=== PATIENT | female | born 1990 | race Caucasian/White ===

== ENCOUNTER → 2018-08-29 | Outpatient (CLI) | payer BC ==
[~2018-08-29] MED LIST: AZIT250; CEFU500 PO; HYDACE5 PO; PROM25 PO; RXHYDACE PO; Verotin-Gr Cap1 EACH PO
[2018-08-29 13:03] LABS: Bilirubin, Urine Neg (Neg); Blood, Urine Neg (Neg); Glucose Qualitative, Urine Neg (Neg); Ketones, Urine Neg (Neg); Leukocyte Esterase, Urine Neg (Neg); Nitrite, Urine Neg (Neg); Protein, Urine Neg (Neg); Specific Gravity, Urine 1.005 (1.003-1.022); Urobilinogen, Urine NORM (Normal); pH, Urine 6.5 (5.0-8.0)
[2018-08-29 14:13] LABS: Appearance, Urine Clear (Clear); Color, Urine Yellow (P-Yellow)
== END | disposition home or self-care (01) ==
LOC: LAB 11:39 → LAB SHORT 11:39
PROVIDERS: Advanced Practice Midwife
DX: Z01.419 Encounter for gynecological examination (general) (routine) without abnormal findings (principal); R30.0 Dysuria
CPT/HCPCS: 81003; 87086; G0123

== ENCOUNTER → 2019-05-30 | Outpatient (CLI) | payer BC ==
[~2019-05-30] MED LIST changes: +Endometrin100 MG VG; +LEVSOD50; +PROG100 PO
== END | disposition home or self-care (01) ==
LOC: LAB SHORT 14:00 → LAB 14:00
DX: Z34.80 Encounter for supervision of other normal pregnancy, unspecified trimester (principal)
CPT/HCPCS: 87081; 87653

== ENCOUNTER 2019-06-28 05:28 | Inpatient (IN) | payer BC ==
[~2019-06-28] VITALS: Ht 165.1 cm; Wt 77.3 kg
[2019-06-28] MEDS ORDERED: Zantac150 MG PO (05:49)
--- NOTE | 2019-06-28 05:53 | NUR ---
LABS DRAWN OFF IV START PER PROTOCOL
[2019-06-28 05:56] LABS: BASOPHILS ABSOLUTE AUTO 0.03 K/mm3 (0.00-0.23); BASOPHILS PERCENT AUTO 0 % (0-2); EOSINOPHILS ABSOLUTE AUTO 0.09 K/mm3 (0.00-0.68); EOSINOPHILS PERCENT AUTO 1 % (0-6); Hematocrit 36.9 % (33.0-51.0); IMMATURE GRAN ABSOLUTE AUTO 0.03 K/mm3 (0.00-0.10); IMMATURE GRAN PERCENT AUTO 0 % (0-1); LYMPHOCYTES ABSOLUTE AUTO 1.97 K/mm3 (0.84-5.20); LYMPHOCYTES PERCENT AUTO 26 % (21-46); MONOCYTES ABSOLUTE AUTO 0.63 K/mm3 (0.16-1.47); MONOCYTES PERCENT AUTO 8 % (4-13); Mean Corpuscular HGB 28.2 pg (26.0-34.0); Mean Corpuscular HGB Conc 32.5 g/dL (31.5-36.5); Mean Corpuscular Volume 87 fL (80-100); Mean Platelet Volume 9.5 fL (9.1-12.4); NEUTROPHILS ABSOLUTE AUTO 4.94 K/mm3 (1.96-9.15); NEUTROPHILS PERCENT AUTO 64 % (41-73); Platelet Count 271 K/mm3 (150-400); RDW Coefficient Variation 12.4 % (11.7-14.2); RDW Standard Deviation 39.3 fL (35.1-46.3); Red Blood Cell Count 4.26 M/mm3 (3.80-5.20); White Blood Cell Count 7.69 K/mm3 (4.00-11.30)
[2019-06-29 08:31] LABS: Hematocrit 28.8 % (33.0-51.0); Hemoglobin 9.2 g/dL (11.5-16.0); Mean Corpuscular HGB 28.7 pg (26.0-34.0); Mean Corpuscular HGB Conc 31.9 g/dL (31.5-36.5); Mean Corpuscular Volume 90 fL (80-100); Mean Platelet Volume 9.6 fL (9.1-12.4); Platelet Count 210 K/mm3 (150-400); RDW Coefficient Variation 12.4 % (11.7-14.2); RDW Standard Deviation 40.7 fL (35.1-46.3); Red Blood Cell Count 3.21 M/mm3 (3.80-5.20); White Blood Cell Count 11.87 K/mm3 (4.00-11.30)
[2019-06-29] MEDS ORDERED: IBUP800 PO (09:57)
[2019-06-29] MEDS ORDERED: ACET500 PO (09:57)
--- NOTE | 2019-06-29 10:03 | NUR ---
CONSULT. SHE IS EXPERIENCED WITH BF TWINS, HAS SOME QUESTIONS ABOUT FEEDINGS THIS WEEK WITH A SINGLE BABY. BABY ASLEEP IN DADS ARMS, FED AN HOUR AGO FOR 20 MINUTES. INSTRUCT IN CHANGES TO EXPECT DURING THE FIRST WEEK WITH BABY AND WITH FEEDINGS AND REFERRED TO BF BROCHURE AND BF BOOKLET FOR PHOTOS AND INFORMATION. MOM STATES SHE EASILY SELF EBM FOR BABY NOW. BOTH PARENTS LOVING WITH BABY. QUESTIONS ANSWERED.
== END 2019-06-29 18:45 | disposition home or self-care (01) | DRG 807 ==
LOC: BC 05:28
PROVIDERS: ADMIT Obstetrics & Gynecology
PROC: 10E0XZZ Delivery of Products of Conception, External Approach (ICD-10-PCS; principal; 2019-06-28)
PROC: 0KQM0ZZ Repair Perineum Muscle, Open Approach (ICD-10-PCS; 2019-06-28)
PROC: 10907ZC Drainage of Amniotic Fluid, Therapeutic from Products of Conception, Via Natural or Artificial Opening (ICD-10-PCS; 2019-06-28)
PROC: 3E033VJ Introduction of Other Hormone into Peripheral Vein, Percutaneous Approach (ICD-10-PCS; 2019-06-28)
DX: O48.0 Post-term pregnancy (principal); Z37.0 Single live birth; O34.211 Maternal care for low transverse scar from previous cesarean delivery; O70.1 Second degree perineal laceration during delivery; Z3A.40 40 weeks gestation of pregnancy; O77.0 Labor and delivery complicated by meconium in amniotic fluid; Z87.891 Personal history of nicotine dependence; Z88.1 Allergy status to other antibiotic agents; Z88.0 Allergy status to penicillin
CPT/HCPCS: 36415; 51702; 85025; 85027; 86850; 86900; 86901; A9270; J1885; J2001; J2405; J2590; J3010; J7120

== ENCOUNTER 2024-08-18 08:39 | Emergency (ER) | payer OTHER ==
[~2024-08-18] VITALS: Ht 165.1 cm; Wt 56.7 kg
[~2024-08-18 08:39] MED LIST changes: +ACET500 PO; +IBUP800 PO; +Zantac150 MG PO
[2024-08-18] MEDS ORDERED: LIOT5 PO (08:54)
[2024-08-18] MEDS ORDERED: Dexamethasone Sod Phos 10 MG/ML 1ML VIAL PO ONE (09:10)
[2024-08-18] MEDS ORDERED: Ketorolac Tromethamine 30mg Vial IM ONE (09:15)
[2024-08-18 09:42] LABS: CORONAVIRUS COVID-19 AG Negative (NEGATIVE); INFLUENZA A AG Positive (NEGATIVE); INFLUENZA B AG Negative (NEGATIVE)
[2024-08-18 10:25] VITALS: BP 121/64
== END 2024-08-18 10:33 | disposition home or self-care (01) ==
LOC: ER 08:39
PROVIDERS: Student in an Organized Health Care Education/Training Program
DX: J10.1 Influenza due to other identified influenza virus with other respiratory manifestations (principal); Z88.0 Allergy status to penicillin; Z79.899 Other long term (current) drug therapy
CPT/HCPCS: 87081; 87428-QW; 87430; 96372; 99284-25; J1100; J1885

== ENCOUNTER → 2024-10-17 | Outpatient (CLI) | payer OTHER ==
[~2024-10-17] MED LIST changes: +LIOT5 PO
[2024-10-17 17:33] LABS: BASOPHILS ABSOLUTE AUTO 0.04 K/mm3 (0.00-0.23); BASOPHILS PERCENT AUTO 1 % (0-2); EOSINOPHILS ABSOLUTE AUTO 0.07 K/mm3 (0.00-0.68); EOSINOPHILS PERCENT AUTO 1 % (0-6); Hematocrit 37.3 % (33.0-51.0); Hemoglobin 12.9 g/dL (11.5-16.0); IMMATURE GRAN ABSOLUTE AUTO 0.02 K/mm3 (0.00-0.10); IMMATURE GRAN PERCENT AUTO 0 % (0-1); LYMPHOCYTES ABSOLUTE AUTO 2.37 K/mm3 (0.84-5.20); LYMPHOCYTES PERCENT AUTO 40 % (21-46); MONOCYTES ABSOLUTE AUTO 0.61 K/mm3 (0.16-1.47); MONOCYTES PERCENT AUTO 10 % (4-13); Mean Corpuscular HGB 31.6 pg (26.0-34.0); Mean Corpuscular HGB Conc 34.6 g/dL (31.5-36.5); Mean Corpuscular Volume 91 fL (80-100); NEUTROPHILS ABSOLUTE AUTO 2.81 K/mm3 (1.96-9.15); NEUTROPHILS PERCENT AUTO 48 % (41-73); Platelet Count 280 K/mm3 (150-400); RDW Coefficient Variation 11.9 % (11.7-14.2); RDW Standard Deviation 40.3 fL (35.1-46.3); Red Blood Cell Count 4.08 M/mm3 (3.80-5.20); White Blood Cell Count 5.92 K/mm3 (4.00-11.30)
== END ==
LOC: LAB SHORT 16:52 → LAB 16:52
PROVIDERS: Registered Nurse Oncology
DX: D50.9 Iron deficiency anemia, unspecified (principal)
CPT/HCPCS: 82728; 83540; 83550; 85025

== ENCOUNTER → 2025-03-14 | Outpatient (CLI) | payer OTHER ==
[2025-03-15 16:40] LABS: HIV 1,2 COMBO ANTIGEN/ANTIBODY Negative (Negative)
[2025-03-16 22:12] LABS: HCV QNT BY NAAT (IU/ML) Not Detected; HCV QNT BY NAAT (LOG IU/ML) Not Detected; HCV QNT BY NAAT INTERP Not Detected (Not Detected)
== END ==
LOC: LAB 15:38 → LAB SHORT 15:38
PROVIDERS: Physician Assistant
DX: Z77.21 Contact with and (suspected) exposure to potentially hazardous body fluids (principal)
CPT/HCPCS: 87389; 87522